=== PATIENT | male | born 1940 | race Caucasian/White ===

== ENCOUNTER → 2017-08-16 | Outpatient (CLI) | payer OTHER ==
[2017-08-16 11:29] LABS: ALT/SGPT 37 U/L (12-78); AST/SGOT 20 U/L (15-37); BLOOD UREA NITROGEN 22 mg/dl (7-18); CALCIUM 8.9 mg/dl (8.5-10.1); CARBON DIOXIDE 28 mmol/L (21-32); CREATININE 1.08 mg/dl (0.60-1.40); GLUCOSE 114 mg/dl (70-99); POTASSIUM 3.6 mmol/L (3.5-5.1); SODIUM 139 mmol/L (136-145)
[2017-08-16 11:32] LABS: CHOLESTEROL 182 mg/dl (0-200); LDL CHOLESTEROL CALCULATED 104 mg/dl
[2017-08-16 11:33] LABS: HEMOGLOBIN A1C 5.4 % (4.5-5.6)
== END | disposition home or self-care (01) ==
LOC: C.LABBC 07:49
PROVIDERS: ATTEND Internal Medicine
DX: E78.5 Hyperlipidemia, unspecified (principal); R73.01 Impaired fasting glucose

== ENCOUNTER 2020-12-30 16:27 | Inpatient (IN) ==
[2020-12-30] MEDS ORDERED: ONDANSETRON INJ 2 MG/ML 2 ML VIAL IV STA (16:54)
[2020-12-30] MEDS ORDERED: SODIUM CHLORIDE 0.9% 1000ML 1,000 ML IV ONE (16:54)
[2020-12-30] MEDS ORDERED: FAMOTIDINE 20MG IV PUSH 20 MG/5 ML SYR IV STA (16:54)
[2020-12-30] MEDS ORDERED: OPTIRAY 320 125ml IV ONE (16:58)
--- NOTE | 2020-12-30 17:15 | Emergency Department Note ---
Impression & Plan Received intravenous tissue plasminogen activator (tPA) in emergency department, Stroke-like symptom, Acute memory impairment ED Provider Note NAME: RAFAEL CARPIO AGE: 80 SEX: M ARRIVES VIA: Walk-In INFORMANT: Patient, Patient's friend/colleague ED PROVIDER(S): Dion Doss MD CHIEF COMPLAINT: Acute memory impairment. 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 Patient also reports that he is unsure where he would even go if he were to attempt to drive home. He had trouble telling the year and thought it was 2019. He knew the season is "sometime in the summer" but did not know the month. 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 I did review the patient's presentation with his son over the phone and left a message on the voicemail of his daughter per the patient's permission. She denies any recent stressors, life changes. Denies any recent illness including fevers, chills, cough, congestion. He denies having any similar episodes such as this in the past. BSG on arrival was within normal limits. He denies any blood thinners or daily aspirin and none documented in his medical record. On arrival the patient is no acute distress, afebrile with blood pressure 150s/80s and otherwise with vital signs. He appears clinically dry. He has no focal motor deficits. He does have notable amnesia/impaired memory regarding events today and basic information including where he lives, what the year is what month it is and that he gave his presentation today and even what it may have been about. Case was discussed with Dr. Urbina, [facility] telestroke neurology, who evaluate the patient upon return from CT. TPA was prepared in preparation for possible administration. WBC, H/H and platelets within normal limits. Chemistry without metabolic acidosis. Electrolytes without significant abnormality. Total bilirubin 1.7 with direct bili 1.3, nonspecific. LFTs unremarkable. Troponin negative/undetectable. TSH within normal limits. COVID-[address] of the head negative for ischemia or ICH. CT a of the head and neck d emonstrates small vessel disease as well as focal occlusion of the right vertebral artery which is nonspecific and may be acute versus possible reflecting left vertebral dominance. Dr. Urbina was evaluating the patient and it was determined that given the patient's symptoms,while could be consistent with TGA which would be benign, certainly could be explained by focal ischemia in the HEAD CONCIERGE territory and so decision was made to proceed with TPA. The patient was in agreement with this plan. Patient tolerating TPA bolus and infusion well. Appreciate telestroke neurology recommendations per Dr. Urbina for admission and MRI at 24 hours as well as spot EEG tomorrow and standard post-tpa management. Patient is in agreement with this plan. RN updated daughter. Case was [facility], who will evaluate the patient for admission. Of note, I was informed by RN of minor bleeding around left AC IV site. There was minor fullness proximal to IV site without tenderness. tPA gtt has been stopped upon recognition of site but 66cc gtt was complete. Site appeared improved on re-evaluation. Triage Nursing notes reviewed and agree them. Prior medical records reviewed Vital Signs: reviewed and remarkable for hypertension. Differential diagnosis: Infection, dehydration, metabolic abnormality, hypo/hyperglycemia, electrolyte disturbance, anemia, hypoxia, cardiac sources, intracerebral event, toxicologic, neurologic, as well as other pathologies. ER treatment provided: See below. Diagnostics interpreted by me: ECG: Normal sinus rhythm, 68 bpm, no ectopy, no overt ST elevation depression, QTC 442, QRS 88. Cardiac Monitoring: An order for continuous cardiac monitoring was placed and demonstrated Normal sinus rhythm, 68 bpm, no ectopy. Laboratory studies: See below Imaging studies: See below Consultation(s): Dr. Urbina, [facility] telestroke neurology. Dr. Valadez, [facility], who will evaluate the patient for admission. 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 Patient also reports that he is unsure where he would even go if he were to attempt to drive home. He had trouble telling the year and thought it was 2019. He knew the season is "sometime in the summer" but did not know the month. 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 I did review the patient's presentation with his son over the phone and left a message on the voicemail of his daughter per the patient's permission. She denies any recent stressors, life changes. Denies any recent illness including fevers, chills, cough, congestion. He denies having any similar episodes such as this in the past. BSG on arrival was within normal limits. He denies any blood thinners or daily aspirin and none d ocumented in his medical record. ROS: See above HPI for pertinent positives & negatives. A total of 10 systems reviewed and were otherwise negative. PAST MEDICAL HISTORY:See Below PAST SURGICAL HISTORY:See Below FAMILY HISTORY:See Below SOCIAL HISTORY:See Below HOME MEDICATIONS:See Below ALLERGIES:See Below VITALS:See Below PHYSICAL EXAMINATION: GENERAL: Awake, alert, well-appearing, in no distress HENT: Normocephalic, atraumatic. Oropharynx with dry mucous membranes and otherwise unremarkable. EYES: Normal conjunctiva. Sclera non-icteric. EOMI. No nystamgus. PEARRL. Visual contreras grossly intact. NECK: Supple. No nuchal rigidity. FROM. No JVD. RESPIRATORY: Clear to auscultation. CARDIAC: Regular rate, normal rhythm. Extremities warm and well perfused. Pulses equal. ABDOMEN: Soft, non-distended. No tenderness to palpation. No rebound or guarding. No masses. RECTAL: Deferred. MUSCULOSKELETAL: Chest examination reveals no tenderness. The back is sym metrical on inspection without obvious abnormality. There is no CVA tenderness to palpation. No joint edema. LOWER EXTREMITIES: Calves are equal size bilaterally and non-tender. No edema. No discoloration. NEURO: Patient has overt memory impairment/amnesia per HPI. Otherwise, cranial nerves II-XII grossly intact there is no overt aphasia or dysarthria. 5/5 strength and SILT x 4 extremities. Cerebellar function intact including [id number], alternating palms, [id number]. SKIN: No rash or jaundice noted. ED COURSE: Critical Care: I have personally spent greater than 75 minutes of critical care time in the direct management of this patient. This includes bedside care, interpretation of diagnostic studies, and testing, discussion with consultants, patient, and family members, and other required patient management activities. This 75 minutes is in excess of all separately billable procedures. 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; h/o chemo HLD (hyperlipidemia) Neuropathy Surgical History History of colonoscopy History of ear surgery Mohs micrgraphic History of excision of pilonidal cyst History of left cataract extraction History of shoulder surgery Mohs Micrographic History of tonsillectomy and adenoidectomy Hx of inguinal hernia surgery Family History Mother Cerebral atherosclerosis Family history of uterine cancer Glaucoma Stroke Father Diabetes Cerebral atherosclerosis Other No family history of adverse response to anesthesia Denies family history of Ovarian cancer Prostate cancer Myocardial infarction Breast cancer Lung cancer Colorectal cancer Social History Smoking Status: Never smoker Second Hand Exposure: No; Hx Alcohol Use: No Hx Substance Use: No Preferred Language: Qatari Communication Ability: Effective Visual Impairment: No Limitations Hearing Ability: Normal 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: No Beliefs That Will Affect Care: None marital status: Current Living Situation: Alone current occupational status: employed How many Children do You have: 2 Other Information That Helps Us Care for You: No Feels Safe at Home: Yes Safety Concerns: Feels Safe At This Time Childhood Exposure to Second-Hand Smoke: Yes (Father) caffeine: No Dental Care, Regularly: Yes Physical Activity Frequency: Daily Physical Activity Frequency Comment: walk mile a day Seatbelt Use: always Sunscreen Use: Yes (sometimes) Assistive Devices: Glasses Allergies Allergies Allergy/AdvReac Type Severity Reaction Status Date / Time No Known Allergies Allergy Verified 12/30/20 16:51 Home Meds Home Medications Medication Instructions Recorded Confirmed omega 2-lwr-aaq-fish oil 1,000 mg 1 cap PO TID 12/06/18 12/30/20 (120 mg-180 mg) capsule (Fish Oil) omeprazole 20 mg capsule,delayed 20 mg PO QPM 10/28/20 12/30/20 release Previous Rx's Medication Instructions Recorded simvastatin 20 mg tablet 20 mg PO QPM #90 tab 04/07/20 finasteride 5 mg tablet 5 mg PO DAILY #90 tab 12/16/20 Results & Data (ED) Vital Signs Vital Signs - 24 hr 12/30/20 16:30 12/30/20 16:52 12/30/20 17:00 Temperature 36.4 C L Temperature Source Temporal Artery Scan Pulse Rate 62 66 71 Pulse Rate [Right Finger] Pulse Rate from SpO2 Sensor 70 71 Pulse Rhythm Regular Pulse Rhythm [Right Finger] Pulse Strength Normal Pulse Strength [Right Finger] Respiratory Rate 20 22 15 Respiratory Effort / Characteristics Non-Labored Spontaneous Respiratory Depth Normal Respiratory Pattern Regular Blood Pressure 157/83 H 159/83 H 159/94 H Blood Pressure [Right Arm] Blood Pressure Mean 107 108 115 Blood Pressure Mean [Right Arm] Blood Pressure Position Sitting Blood Pressure Position [Right Arm] Pulse Oximetry 98 96 97 Oxygen Delivery Method Room Air Sepsis Recent Fever Within 48 Hours No Sepsis New/Unexplained Change in Mental Status No Sepsis Action Taken by Nursing No Action Required 12/30/20 17:18 12/30/20 17:30 12/30/20 17:53 Temperature Temperature Source Pulse Rate 70 71 Pulse Rate [Right Finger] 67 75 Pulse Rate from SpO2 Sensor 68 72 Pulse Rhythm Pulse Rhythm [Right Finger] Regular Pulse Strength Pulse Strength [Right Finger] Normal Respiratory Rate 17 18 18 Respiratory Effort / Characteristics Non-Labored Respiratory Depth Normal Respiratory Pattern Regular Blood Pressure 168/86 H 154/88 H Blood Pressure [Right Arm] 154/88 H 154/109 H Blood Pressure Mean 113 110 Blood Pressure Mean [Right Arm] 110 124 Blood Pressure Position Blood Pressure Position [Right Arm] Sitting Pulse Oximetry 99 97 98 Oxygen Delivery Method Room Air Room Air Sepsis Recent Fever Within 48 Hours Sepsis New/Unexplained Change in Mental Status Sepsis Action Taken by Nursing 12/30/20 18:10 12/30/20 18:25 12/30/20 18:40 Temperature 37.0 C 36.9 C 36.5 C Temperature Source Oral Oral Oral Pulse Rate Pulse Rate [Right Finger] 75 69 73 Pulse Rate from SpO2 Sensor Pulse Rhythm Pulse Rhythm [Right Finger] Regular Regular Regular Pulse Strength Pulse Strength [Right Finger] Normal Normal Normal Respiratory Rate 16 17 18 Respiratory Effort / Characteristics Non-Labored Non-Labored Non-Labored Respiratory Depth Normal Normal Normal Respiratory Pattern Regular Regular Regular Blood Pressure Blood Pressure [Right Arm] 164/83 H 156/81 H 175/99 H Blood Pressure Mean Blood Pressure Mean [Right Arm] 110 106 124 Blood Pressure Position Blood Pressure Position [Right Arm] Sitting Sitting Sitting Pulse Oximetry 98 98 98 Oxygen Delivery Method Room Air Room Air Room Air Sepsis Recent Fever Within 48 Hours Sepsis New/Unexplained Change in Mental Status Sepsis Action Taken by Nursing 12/30/20 18:58 Temperature 36.6 C Temperature Source Oral Pulse Rate Pulse Rate [Right Finger] 65 Pulse Rate from SpO2 Sensor Pulse Rhythm Pulse Rhythm [Right Finger] Regular Pulse Strength Pulse Strength [Right Finger] Normal Respiratory Rate 17 Respiratory Effort / Characteristics Non-Labored Respiratory Depth Normal Respiratory Pattern Regular Blood Pressure Blood Pressure [Right Arm] 155/88 H Blood Pressure Mean Blood Pressure Mean [Right Arm] 110 Blood Pressure Position Blood Pressure Position [Right Arm] Sitting Pulse Oximetry 96 Oxygen Delivery Method Room Air Sepsis Recent Fever Within 48 Hours Sepsis New/Unexplained Change in Mental Status Sepsis Action Taken by Nursing Laboratory Data Attestation: I reviewed the patient's lab results. Result diagrams: 12/30/20 16:55 12/30/20 16:55 Lab Results 12/30/20 12/30/20 12/30/20 Range/Units 16:55 16:55 16:55 WBC 4.85 (4.8-10.8) K/uL RBC 5.37 (4.7-6.1) M/uL Hgb 17.2 (14.0-18.0) g/dL Hct 49.2 (42-52) % MCV 91.6 (80-100) fL MCH 32.0 (25-34) pg MCHC 35.0 (32-36) g/dL RDW Std Deviation 43.6 (36.4-46.3) fL RDW Coeff of Joe 13.1 (11.5-14.5) % Plt Count 152 (130-400) K/uL MPV 11.2 H (7.4-10.4) fL Immature Gran % (Auto) 0.2 % Neut % (Auto) 63.8 % Lymph % (Auto) 24.9 % [place] % (Auto) 7.6 % Eos % (Auto) 2.7 % Baso % (Auto) 0.8 % Neut # (Auto) 3.09 (1.4-6.5) K/uL Lymph # (Auto) 1.21 (1.2-3.4) K/uL Lincoln # (Auto) 0.37 (0.11-0.59) K/uL Eos # (Auto) 0.13 (0-0.5) K/uL Baso # (Auto) 0.04 (0-0.2) K/uL Immature Gran # (Auto) 0.01 (0.00-0.02) K/uL PT 10.5 (9.0-12.0) Seconds INR 1.0 (0.9-1.1) APTT 25.4 (21.0-31.0) Seconds PTT Ratio 1.0 Sodium 140 (136-145) mmol/L Potassium 3.9 (3.5-5.1) mmol/L Chloride 110 H (98-107) mmol/L Carbon Dioxide 26 (21-32) mmol/L Anion Gap 4.0 (3-11) BUN 16 (7-18) mg/dl Creatinine 0.99 (0.6-1.4) mg/dl Est Cr Clr Drug Dosing 64.4 ml/min Est GFR ( Amer) 83.6 ml/min Est GFR (Non-Af Amer) 72.1 ml/min BUN/Creatinine Ratio 15.8 (10-20) Glucose 117 H (70-99) mg/dl POC Glucose (70-99) mg/dl Calcium 9.0 (8.5-10.1) mg/dl Phosphorus 3.1 (2.5-4.9) mg/dl Magnesium 2.3 (1.8-2.4) mg/dl Total Bilirubin 1.7 H (0.2-1) mg/dl Direct Bilirubin 0.3 H (0-0.2) mg/dl AST 19 (15-37) U/L ALT 31 (12-78) U/L Alkaline Phosphatase 66 (45-117) U/L Total Creatine Kinase 44 (39-308) U/L Troponin I < 0.015 (0-0.045) ng/ml Total Protein 7.3 (6.4-8.2) gm/dl Albumin 4.0 (3.4-5.0) gm/dl Globulin 3.3 (2.5-4.0) gm/dl Albumin/Globulin Ratio 1.2 (0.9-2) TSH 2.540 (0.300-4.500) uIu/ml Urine Color Urine Appearance (Clear) Urine pH (4.5-7.5) Ur Specific [place] (1.000-1.030) Urine Protein (Negative) Urine Glucose (UA) (Negative) Urine Ketones (Negative) Urine Blood (Negative) Urine Nitrite (Negative) Urine Bilirubin (Negative) Urine Urobilinogen (Negative) Ur Leukocyte Esterase (Negative) COVID-19 Eval Order SARS-CoV-2 (PCR) (Negative) Blood Type Antibody Screen 12/30/20 12/30/20 12/30/20 Range/Units 16:56 17:04 17:23 WBC (4.8-10.8) K/uL RBC (4.7-6.1) M/uL Hgb (14.0-18.0) g/dL Hct (42-52) % MCV (80-100) fL MCH (25-34) pg MCHC (32-36) g/dL RDW Std Deviation (36.4-46.3) fL RDW Coeff of Joe (11.5-14.5) % Plt Count (130-400) K/uL MPV (7.4-10.4) fL Immature Gran % (Auto) % Neut % (Auto) % Lymph % (Auto) % [place] % (Auto) % Eos % (Auto) % Baso % (Auto) % Neut # (Auto) (1.4-6.5) K/uL Lymph # (Auto) (1.2-3.4) K/uL [place] # (Auto) (0.11-0.59) K/uL Eos # (Auto) (0-0.5) K/uL Baso # (Auto) (0-0.2) K/uL Immature Gran # (Auto) (0.00-0.02) K/uL PT (9.0-12.0) Seconds INR (0.9-1.1) APTT (21.0-31.0) Seconds PTT Ratio Sodium (136-145) mmol/L Potassium (3.5-5.1) mmol/L Chloride (98-107) mmol/L Carbon Dioxide (21-32) mmol/L Anion Gap (3-11) BUN (7-18) mg/dl Creatinine (0.6-1.4) mg/dl Est Cr Clr Drug Dosing ml/min Est GFR ( Amer) ml/min Est GFR (Non-Af Amer) ml/min BUN/Creatinine Ratio (10-20) Glucose (70-99) mg/dl POC Glucose 114 H (70-99) mg/dl Calcium (8.5-10.1) mg/dl Phosphorus (2.5-4.9) mg/dl Magnesium (1.8-2.4) mg/dl Total Bilirubin (0.2-1) mg/dl Direct Bilirubin (0-0.2) mg/dl AST (15-37) U/L ALT (12-78) U/L Alkaline Phosphatase (45-117) U/L Total Creatine Kinase (39-308) U/L Troponin I (0-0.045) ng/ml Total Protein (6.4-8.2) gm/dl Albumin (3.4-5.0) gm/dl Globulin (2.5-4.0) gm/dl Albumin/Globulin Ratio (0.9-2) TSH (0.300-4.500) uIu/ml Urine Color Urine Appearance (Clear) Urine pH (4.5-7.5) Ur Specific [place] (1.000-1.030) Urine Protein (Negative) Urine Glucose (UA) (Negative) Urine Ketones (Negative) Urine Blood (Negative) Urine Nitrite (Negative) Urine Bilirubin (Negative) Urine Urobilinogen (Negative) Ur Leukocyte Esterase (Negative) COVID-19 Eval Order Covid19 at [facility] SARS-CoV-2 (PCR) (Negative) Blood Type O Negative Antibody Screen NEGATIVE 12/30/20 12/30/20 Range/Units 17:23 17:42 WBC (4.8-10.8) K/uL RBC (4.7-6.1) M/uL Hgb (14.0-18.0) g/dL Hct (42-52) % MCV (80-100) fL MCH (25-34) pg MCHC (32-36) g/dL RDW Std Deviation (36.4-46.3) fL RDW Coeff of Joe (11.5-14.5) % Plt Count (130-400) K/uL MPV (7.4-10.4) fL Immature Gran % (Auto) % Neut % (Auto) % Lymph % (Auto) % [place] % (Auto) % Eos % (Auto) % Baso % (Auto) % Neut # (Auto) (1.4-6.5) K/uL Lymph # (Auto) (1.2-3.4) K/uL [place] # (Auto) (0.11-0.59) K/uL Eos # (Auto) (0-0.5) K/uL Baso # (Auto) (0-0.2) K/uL Immature Gran # (Auto) (0.00-0.02) K/uL PT (9.0-12.0) Seconds INR (0.9-1.1) APTT (21.0-31.0) Seconds PTT Ratio Sodium (136-145) mmol/L Potassium (3.5-5.1) mmol/L Chloride (98-107) mmol/L Carbon Dioxide (21-32) mmol/L Anion Gap (3-11) BUN (7-18) mg/dl Creatinine (0.6-1.4) mg/dl Est Cr Clr Drug Dosing ml/min Est GFR ( Amer) ml/min Est GFR (Non-Af Amer) ml/min BUN/Creatinine Ratio (10-20) Glucose (70-99) mg/dl POC Glucose (70-99) mg/dl Calcium (8.5-10.1) mg/dl Phosphorus (2.5-4.9) mg/dl Magnesium (1.8-2.4) mg/dl Total Bilirubin (0.2-1) mg/dl Direct Bilirubin (0-0.2) mg/dl AST (15-37) U/L ALT (12-78) U/L Alkaline Phosphatase (45-117) U/L Total Creatine Kinase (39-308) U/L Troponin I (0-0.045) ng/ml Total Protein (6.4-8.2) gm/dl Albumin (3.4-5.0) gm/dl Globulin (2.5-4.0) gm/dl Albumin/Globulin Ratio (0.9-2) TSH (0.300-4.500) uIu/ml Urine Color Yellow Urine Appearance Clear (Clear) Urine pH 6.0 (4.5-7.5) Ur Specific [place] 1.029 (1.000-1.030) Urine Protein Negative (Negative) Urine Glucose (UA) Negative (Negative) Urine Ketones 1+ H (Negative) Urine Blood Negative (Negative) Urine Nitrite Negative (Negative) Urine Bilirubin Negative (Negative) Urine Urobilinogen Negative (Negative) Ur Leukocyte Esterase Negative (Negative) COVID-19 Eval Order SARS-CoV-2 (PCR) NEGATIVE (Negative) Blood Type Antibody Screen Administered Medications Fish Oil (Celoron-3 (Purified Fish Oil) 1 Gm Cap) 1 gm PO TID RADHA Stop: 01/29/21 21:07 Last Admin: 12/30/20 22:28 Dose: 1 gm Documented by: [id number] Pantoprazole Sodium (Pantoprazole 40 Mg Tab) 40 mg PO QPM RADHA Stop: 01/29/21 21:07 Last Admin: 12/30/20 22:28 Dose: 40 mg Documented by: [id number] Simvastatin (Simvastatin 20 Mg Tab) 20 mg PO QPM RADHA Stop: 01/29/21 21:07 Last Admin: 12/30/20 22:28 Dose: 20 mg Documented by: [id number] Discontinued Medications Alteplase, Recombinant (Tpa For Stroke) 1 ea IV NOW STA; Protocol Stop: 12/30/20 17:53 Last Admin: 12/30/20 21:55 Dose: Not Given Documented by: [id number] Famotidine (Pepcid 20mg Iv Push) 20 mg in 5 mls @ 2.5 mls/min IV NOW STA Stop: 12/30/20 16:55 Last Admin: 12/30/20 17:23 Dose: 2.5 mls/min Documented by: [id number] Sodium Chloride (Nss 1000ml) 1,000 mls @ 999 mls/hr IV .Q1H1M ONE Stop: 12/30/20 17:54 Last Infusion: 12/30/20 20:45 Dose: 0 mls/hr Documented by: [id number] Admin: 12/30/20 17:23 Dose: 999 mls/hr Documented by: [id number] Alteplase, Recombinant 7.4 mg/ (Syringe) 7.4 mls @ 7.4 mls/min IV ONCE ONE Stop: 12/30/20 18:03 Last Admin: 12/30/20 17:53 Dose: 7.4 mls/min Documented by: [id number] Cosigned by: [id number] Alteplase, Recombinant 66 mg/ (EMPTY BAG) 66 mls @ 66 mls/hr IV ONCE ONE Stop: 12/30/20 18:04 Last Infusion: 12/30/20 19:02 Dose: 66 mls/hr Documented by: [id number] Cosigned by: [id number] Admin: 12/30/20 17:55 Dose: 66 mls/hr Documented by: [id number] Cosigned by: [id number] Ioversol (Optiray 320 125ml) 118 ml IV ONCE ONE Stop: 12/30/20 16:59 Last Admin: 12/30/20 16:58 Dose: 118 ml Documented by: [id number] Ondansetron HCl (Ondansetron Inj 2 Mg/Ml 2 Ml Vial) 4 mg IV NOW STA Stop: 12/30/20 16:55 Last Admin: 12/30/20 17:23 Dose: 4 mg Documented by: [id number] Imaging Data Radiologist's Impression: Head CT 12/30/20 16:51 CT head/brain wo con CLINICAL HISTORY: Stroke Like Symptoms COMPARISON STUDY: No previous studies for comparison. TECHNIQUE: Axial CT of the brain is performed from the vertex to the skull base. IV contrast was not administered for this examination. A dose lowering technique was utilized adhering to the principles of ALARA. CT DOSE: 1209.66 mGy.cm FINDINGS: No intra or extra-axial mass lesions are visualized. There is no CT evidence of acute cortical infarction. There is no evidence of midline shift. There is no acute hemorrhage. No acute depressed calvarial fractures are visualized. There are patchy white matter hypodensities likely on a small vessel basis. There is no evidence of pathologic ventricular dilatation. Concentric mucosal thickening of bilateral maxillary sinuses likely representing inflammatory process. Also mucous polyp is seen on nondependent portion of the left sphenoid sinus. IMPRESSION: No acute intracranial hemorrhage, no midline shift or space occupying lesions. Chronic small vessel ischemia. Sinusitis. ACT 112: Negative or not required by law. The above report was generated using voice recognition software. It may contain grammatical, syntax or spelling errors. Electronically signed by: Marcia Ya DO 12/30/2020 5:22 PM Head CTA 12/30/20 16:51 CT angio head w con CLINICAL HISTORY: Stroke Like Symptoms TECHNIQUE: CT angiography of the head was performed in a dynamic helical fashion during intravenous administration of 180 cc of Optiray. MIP imaging was performed. A dose lowering technique was utilized adhering to the principles of ALARA. CT DOSE: COMPARISON STUDY: No previous studies for comparison. FINDINGS: Minimal atherosclerotic involvement of the supraclinoid aspect of the right and left internal carotid arteries without hemodynamically significant stenosis. Bilateral middle and anterior cerebral arteries are patent throughout its course without focal occlusion or significant stenosis. Bilateral anterior communicating arteries are patent. Basilar artery is patent. Right and left posterior cerebral arteries are patent. IMPRESSION: Patent bilateral YUNIER, MCA and HEAD CONCIERGE. No focal occlusion, dissection or aneurysmal dilatation seen. ACT 112: Negative or not required by law. The above report was generated using voice recognition software. It may contain grammatical, syntax or spelling errors. Electronically signed by: Marcia Ya DO 12/30/2020 5:35 PM Neck CTA 12/30/20 16:51 CT angio neck with con CLINICAL HISTORY: Stroke Like Symptoms COMPARISON STUDY: No previous studies for comparison. TECHNIQUE: CT angiography was performed from the aortic arch to the skull base. MIP imaging was performed. The patient was scanned in a dynamic helical fashion during intravenous administration of 118 cc of Optiray. A dose lowering technique was utilized adhering to the principles of ALARA. CT DOSE: Technique: CT angiogram of the carotid and vertebral arteries was obtained using intravenous contrast and 3-D reconstruction. NASCET criteria was utilized. Findings: Mild atherosclerotic involvement of the left carotid bulb. The right carotid revealed no evidence of aneurysm and no evidence of dissection. There is no evidence of hemodynamic significant stenosis. The left carotid revealed no evidence of hemodynamic significant stenosis. There is no evidence of aneurysm. There is no evidence of dissection. Left predominant vertebral circulation is seen. Right vertebral artery is diffusely narrowed. Distal V4 segment of the right vertebral artery is significantly narrowed with almost nonvisualization of the flow within V4 segment, possibly due to focal occlusion. Right vertebral artery is patent throughout its course. No evidence of dissection or aneurysmal dilatation. IMPRESSION: No evidence of hemodynamically significant stenosis within bilateral carotid or left vertebral artery. Possible focal occlusion at the distal aspect of the V4 segment of the right vertebral artery. Diffuse narrowing of right vertebral artery which could be due to left predominant vertebral circulation. Report will be sent to emergency Department. No evidence of dissection. ACT 112: Negative or not required by law. The above report was generated using voice recognition software. It may contain grammatical, syntax or spelling errors. Electronically signed by: Marcia Ya DO 12/30/2020 5:29 PM Discharge Plan Visit Data Chief Complaint: Confusion Stated Complaint: CONFUSED ED Provider: Dion Doss Discharge Problem: Received intravenous tissue plasminogen activator (tPA) in emergency department, Stroke-like symptom, Acute memory impairment Patient Disposition: Admitted As Inpatient Discharge Instructions Interventions: ED Discharge Assessment Last Done: 12/30/20 20:30
--- NOTE | 2020-12-30 17:24 | CT Scan Report ---
CT head/brain wo con CLINICAL HISTORY: Stroke Like Symptoms COMPARISON STUDY: No previous studies for comparison. TECHNIQUE: Axial CT of the brain is performed from the vertex to the skull base. IV contrast was not administered for this examination. A dose lowering technique was utilized adhering to the principles of ALARA. CT DOSE: 1209.66 mGy.cm FINDINGS: No intra or extra-axial mass lesions are visualized. There is no CT evidence of acute cortical infarc tion. There is no evidence of midline shift. There is no acute hemorrhage. No acute depressed calvar ial fractures are visualized. There are patchy white matter hypodensities likely on a small vessel basis. There is no evidence of pathologic ventricular dilatation. Concentric mucosal thickening of bilateral maxillary sinuses likely representing inflammatory process . Also mucous polyp is seen on nondependent portion of the left sphenoid sinus. IMPRESSION: No acute intracranial hemorrhage, no midline shift or space occupying lesions. Chronic small vessel ischemia. Sinusitis. ACT 112: Negative or not required by law. The above report was generated using voice recognition software. It may contain grammatical, syntax o r spelling errors. Electronically signed by: Marcia Ya DO 12/30/2020 5:22 PM
[2020-12-30 17:27] LABS: Partial Thromboplastin Time 25.4 Seconds (21.0-31.0); Prothrombin Time 10.5 Seconds (9.0-12.0)
[2020-12-30 17:30] LABS: Alanine Aminotransferase 31 U/L (12-78); Aspartate Aminotransferase 19 U/L (15-37); BUN Creatinine Ratio 15.8 (10-20); Bilirubin Direct 0.3 mg/dl (0-0.2); Blood Urea Nitrogen 16 mg/dl (7-18); Carbon Dioxide 26 mmol/L (21-32); Chloride 110 mmol/L (98-107); Creatinine Clr Calc Pharmacy 64.4 ml/min; Est GFR (African American) 83.6 ml/min; Est GFR (Non-African American) 72.1 ml/min; Glucose 117 mg/dl (70-99); Magnesium 2.3 mg/dl (1.8-2.4); Potassium 3.9 mmol/L (3.5-5.1); Sodium 140 mmol/L (136-145)
--- NOTE | 2020-12-30 17:31 | CT Scan Report ---
CT angio neck with con CLINICAL HISTORY: Stroke Like Symptoms COMPARISON STUDY: No previous studies for comparison. TECHNIQUE: CT angiography was performed from the aortic arch to the skull base. MIP imaging was perfo rmed. The patient was scanned in a dynamic helical fashion during intravenous administration of 118 c c of Optiray. A dose lowering technique was utilized adhering to the principles of ALARA. CT DOSE: Technique: CT angiogram of the carotid and vertebral arteries was obtained using intravenous contrast and 3-D reconstruction. NASCET criteria was utilized. Findings: Mild atherosclerotic involvement of the left carotid bulb. The right carotid revealed no evidence of aneurysm and no evidence of dissection. There is no evidenc e of hemodynamic significant stenosis. The left carotid revealed no evidence of hemodynamic significant stenosis. There is no evidence of an eurysm. There is no evidence of dissection. Left predominant vertebral circulation is seen. Right vertebral artery is diffusely narrowed. Distal V4 segment of the right vertebral artery is significantly narrowed with almost nonvisualization of th e flow within V4 segment, possibly due to focal occlusion. Right vertebral artery is patent throughou t its course. No evidence of dissection or aneurysmal dilatation. IMPRESSION: No evidence of hemodynamically significant stenosis within bilateral carotid or left vertebral artery . Possible focal occlusion at the distal aspect of the V4 segment of the right vertebral artery. Diffus e narrowing of right vertebral artery which could be due to left predominant vertebral circulation. R eport will be sent to emergency Department. No evidence of dissection. ACT 112: Negative or not required by law. The above report was generated using voice recognition software. It may contain grammatical, syntax o r spelling errors. Electronically signed by: Marcia Ya DO 12/30/2020 5:29 PM
[2020-12-30 17:32] LABS: Basophils # (auto) 0.04 K/uL (0-0.2); Basophils % (auto) 0.8 %; Eosinophils # (auto) 0.13 K/uL (0-0.5); Eosinophils % (auto) 2.7 %; Hematocrit (blood only) 49.2 % (42-52); Hemoglobin 17.2 g/dL (14.0-18.0); Immature Granulocytes # (auto) 0.01 K/uL (0.00-0.02); Immature Granulocytes % (auto) 0.2 %; Lymphocytes # (auto) 1.21 K/uL (1.2-3.4); Lymphocytes % (auto) 24.9 %; Mean Corpuscular Volume 91.6 fL (80-100); Mean Platelet Volume 11.2 fL (7.4-10.4); Monocytes # (auto) 0.37 K/uL (0.11-0.59); Monocytes % (auto) 7.6 %; Neutrophils # (auto) 3.09 K/uL (1.4-6.5); Neutrophils % (auto) 63.8 %; Platelet Count 152 K/uL (130-400); RDW Coefficient of Variation 13.1 % (11.5-14.5); RDW Standard Deviation 43.6 fL (36.4-46.3); Red Blood Count 5.37 M/uL (4.7-6.1); White Blood Count 4.85 K/uL (4.8-10.8)
--- NOTE | 2020-12-30 17:36 | CT Scan Report ---
CT angio head w con CLINICAL HISTORY: Stroke Like Symptoms TECHNIQUE: CT angiography of the head was performed in a dynamic helical fashion during intravenous a dministration of 180 cc of Optiray. MIP imaging was performed. A dose lowering technique was utilized adhering to the principles of ALARA. CT DOSE: COMPARISON STUDY: No previous studies for comparison. FINDINGS: Minimal atherosclerotic involvement of the supraclinoid aspect of the right and left internal carotid arteries without hemodynamically significant stenosis. Bilateral middle and anterior cerebral arteries are patent throughout its course without focal occlus ion or significant stenosis. Bilateral anterior communicating arteries are patent. Basilar artery is patent. Right and left posterior cerebral arteries are patent. IMPRESSION: Patent bilateral YUNIER, MCA and SAW FEEDER. No focal occlusion, dissection or aneurysmal dilatation seen. ACT 112: Negative or not required by law. The above report was generated using voice recognition software. It may contain grammatical, syntax o r spelling errors. Electronically signed by: Marcia Ya DO 12/30/2020 5:35 PM
[2020-12-30 17:39] LABS: Albumin Globulin Ratio 1.2 (0.9-2); Alkaline Phosphatase 66 U/L (45-117); Bilirubin,Total 1.7 mg/dl (0.2-1); Creatine Kinase 44 U/L (39-308); Globulin 3.3 gm/dl (2.5-4.0); Phosphorus 3.1 mg/dl (2.5-4.9); Total Protein 7.3 gm/dl (6.4-8.2); Troponin I < 0.015 ng/ml (0-0.045)
[2020-12-30] MEDS ORDERED: TPA for Stroke IV STA (17:52)
[2020-12-30] MEDS ORDERED: No Aspirin within 24 hrs of TPA for Stroke PO SCH (18:00)
[2020-12-30] MEDS ORDERED: Alteplase Bolus 7.4 MG in SYRINGE 0 ML IV ONE (18:02)
[2020-12-30] MEDS ORDERED: ALTEPLASE, RECOMBINANT 66 MG in EMPTY BAG 0 ML IV ONE (18:03)
[2020-12-30] MEDS ORDERED: PRIMARY PLUMSET, PE LINED TUBING, 113 IN, NON-DEHP (2260-0500) IV ONE (18:03)
[2020-12-30 18:23] LABS: Appearance Urine Clear (Clear); Bilirubin Urine Negative (Negative); Blood Urine Negative (Negative); Color Urine Yellow; Glucose Urine UA Negative (Negative); Ketones Urine 1+ (Negative); Leukocyte Esterase Urine Negative (Negative); Nitrite Urine Negative (Negative); Protein Urine Negative (Negative); Specific Gravity Urine 1.029 (1.000-1.030); Urobilinogen Urine Negative (Negative)
--- NOTE | 2020-12-30 19:06 | History & Physical Report ---
Date of Service December 30, 2020 Assessment & Plan (1) Transient global amnesia: Plan: 80 yo male comes into the hospital with above problem. Possible stroke. S/P tPA. obtained CTA head and neck and CT head. will consult neurology If no improvement and stroke unlikely, may consider infectious causes. However currently not presenting signs of sepsis. Neurosyphillis may also be part of the differential. 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 (4) Benign prostate hyperplasia: Plan: resume finasteride and monitor History of Present Illness Chief Complaint: Amnesia Primary Care Provider: Chapo Case MD 80-year-old male with PMH of HLD, BPH who presented as a stroke alert this afternoon after his colleagues noticed that he was not himself. Patient had been preparing for a presentation today for days. 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 e underwent a CTA of the head and neck which did [place] straight small vessel disease as well as a focal occlusion of the right vertebral artery which was nonspecific and could be acute versus possibly reflecting left vertebral dominance. Patient wehnt to the ER and was given tPa for his amnesia after tele neuro consult done and thought that this may be related to PERIANESTHESIA RN territory ischemia. Patient continues to be confused and he does not recall exactly when this began. He denies any headache, dizziness, syncope, changes in vision, facial droop, numbness or tingling, or loss of sensation. He denies any recent illness, fevers, sore throat, chest pain, shortness of breath, nausea or vomiting, or abdominal pain. Will monitor in ICU for 24 hours following TPA administration protocol. Allergies Allergy/AdvReac Type Severity Reaction Status Date / Time No Known Allergies Allergy Verified 12/30/20 16:51 Home Medications Medication Instructions Recorded Confirmed Type omega 1-uwc-jlz-fish oil 1,000 mg 1 cap PO TID 12/06/18 12/30/20 History (120 mg-180 mg) capsule (Fish Oil) simvastatin 20 mg tablet 20 mg PO QPM #90 tab 04/07/20 12/30/20 Rx omeprazole 20 mg capsule,delayed 20 mg PO QPM 10/28/20 12/30/20 History release finasteride 5 mg tablet 5 mg PO DAILY #90 tab 12/16/20 12/30/20 Rx Past Med/Surg History Medical History BPH (benign prostatic hyperplasia) GERD (gastroesophageal reflux disease) History of basal cell carcinoma 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; h/o chemo HLD (hyperlipidemia) Neuropathy Surgical History History of colonoscopy History of ear surgery Mohs micrgraphic History of excision of pilonidal cyst History of left cataract extraction History of shoulder surgery Mohs Micrographic History of tonsillectomy and adenoidectomy Hx of inguinal hernia surgery Family History Mother Cerebral atherosclerosis Family history of uterine cancer Glaucoma Stroke Father Diabetes Cerebral atherosclerosis Other No family history of adverse response to anesthesia Denies family history of Ovarian cancer Prostate cancer Myocardial infarction Breast cancer Lung cancer Colorectal cancer Social History Smoking Status: Never smoker Second Hand Exposure: No; Hx Alcohol Use: No Hx Substance Use: No Preferred Language: Bahamian Communication Ability: Effective Visual Impairment: No Limitations Hearing Ability: Normal Employment Services Director Required: No Beliefs That Will Affect Care: None marital status: Current Living Situation: Alone current occupational status: employed How many Children do You have: 2 Other Information That Helps Us Care for You: No Feels Safe at Home: Yes Safety Concerns: Feels Safe At This Time Childhood Exposure to Second-Hand Smoke: Yes (Father) caffeine: No Dental Care, Regularly: Yes Physical Activity Frequency: Daily Physical Activity Frequency Comment: walk mile a day Seatbelt Use: always Sunscreen Use: Yes (sometimes) Assistive Devices: Glasses Review of Systems Review of Systems: Unobtainable due to cognitive status Physical Exam Constitutional: WD/WN, vitals as above Eyes: PERRL, conjunctivae normal, anicteric sclerae ENMT: external ear and nose normal, oropharynx normal Neck: trachea midline, no thyromegaly Respiratory: normal respiratory effort, lungs clear to auscultation Cardiovascular: RRR, no murmur, no edema Gastrointestinal (Abdomen): normal bowel sounds, soft, nontender, no hepatosplenomegaly Musculoskeletal: no cyanosis or clubbing, extremities motor strength 5/5 Skin: no rashes, warm and dry Neurologic: PERRL, EOMI, accommodation nl, no face palsy, no dysarthria Psychiatric: Orientation: alert and oriented to person; + not oriented to time Results & Data Results & Data ([facility]) Vital Signs (Past 12 Hours) Vital Signs Temp Pulse Pulse Resp BP BP Pulse Ox 12/30/20 18:58 36.6 C 65 17 155/88 H 96 12/30/20 18:40 36.5 C 73 18 175/99 H 98 12/30/20 18:25 36.9 C 69 17 156/81 H 98 12/30/20 18:10 37.0 C 75 16 164/83 H 98 12/30/20 17:53 75 18 154/109 H 98 12/30/20 17:30 71 67 18 154/88 H 154/88 H 97 12/30/20 17:18 70 17 168/86 H 99 12/30/20 17:00 71 15 159/94 H 97 12/30/20 16:52 66 22 159/83 H 96 12/30/20 16:30 36.4 C L 62 20 157/83 H 98 PG Care Time/CCT Total # of Minutes Spent Total Time Spent with Patient: Total time spent is greater than 50% in coordination of care (as documented) at patient's floor/unit and/or counseling patient: Coding Level of Care Code 13256 Initial Inpt Care Lvl 3 Diagnoses Transient global amnesia G45.4 tPA adm status 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
[2020-12-30] MEDS ORDERED: PHARMACIST DISCHARGE MED REC CONSULT PRN (19:07)
--- NOTE | 2020-12-30 21:01 | Critical Care Consultation ---
Date of Consultation December 30, 2020 Assessment & Plan (1) Stroke: Acute stroke?Patient presented as a stroke alert following acute symptoms of confusion and trouble with short-term memory after his conference at 3 PM -CT head without contrastno acute intracranial findings -CTA head and neckpossible focal occlusion at distal aspect of V4 segment of the right vertebral artery which could be due to left predominant vertebral circulation? -CTA otherwise unremarkable -Follow-up MRI -We will obtain EEG in a.m. following [facility] neurology recommendations -Follow-up CT head at 24 hours post TPA administration -Post TPA protocol, admitted to ICU for frequent neuro exams and close mon itoring -Follow-up neurology recommendations with aspirin, Plavix -Follow-up A1c and lipid panel -Continuous monitor on telemetry (2) BPH w/o urinary obs/LUTS: No issue at this time. Continue finasteride Strict I's and O's (3) Peripheral neuropathy: No issue at this time. Patient states this is related to chemotherapy from 20 years ago, he denies use of medications (4) Hyperlipidemia: Continue statin. Follow-up lipid panel History of Present Illness History of Present Illness Patient is a 80-year-old male with past medical history of HLD, BPH who presented to the emergency department as a code stroke earlier this evening after he was found to be confused by his colleagues while at work. Patient just presented just a presentation at 3 PM when his friend noticed that he was confus ed and having trouble remembering. On arrival to the emergency department he underwent CT head without contrast which was negative for acute intracranial process. He underwent a CTA of the head and neck which did [place] straight small vessel disease as well as a focal occlusion of the right vertebral artery which was nonspecific and could be acute versus possibly reflecting left vertebral dominance. 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 Post TPA administration he was admitted to the ICU for further monitoring. On arrival to the ICU the patient is oriented to person and place but is somewhat confused about time and does clearly have trouble with his short-term memory. He is able to remember that he had a stroke but does not remember the conference that he had earlier today. He is otherwise neurologically intact without further deficits and his speech is clear and precise. He denies any headache, dizziness, syncope, changes in vision, facial droop, numbness or tingling, or loss of sensation. He denies any recent illness, fevers, sore throat, chest pain, shortness of breath, nausea or vomiting, or abdominal pain. Will monitor in ICU for 24 hours following TPA administration protocol. Allergies Allergy/AdvReac Type Severity Reaction Status Date / Time No Known Allergies Allergy Verified 12/30/20 16:51 Home Medications Medication Instructions Recorded Confirmed Type omega 6-exp-jsk-fish oil 1,000 mg 1 cap PO TID 12/06/18 12/30/20 History (120 mg-180 mg) capsule (Fish Oil) simvastatin 20 mg tablet 20 mg PO QPM #90 tab 04/07/20 12/30/20 Rx omeprazole 20 mg capsule,delayed 20 mg PO QPM 10/28/20 12/30/20 History release finasteride 5 mg tablet 5 mg PO DAILY #90 tab 12/16/20 12/30/20 Rx Patient History Medical History BPH (benign prostatic hyperplasia) GERD (gastroesophageal reflux disease) History of basal cell carcinoma 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; h/o chemo HLD (hyperlipidemia) Neuropathy Surgical History History of colonoscopy History of ear surgery Mohs micrgraphic History of excision of pilonidal cyst History of left cataract extraction History of shoulder surgery Mohs Micrographic History of tonsillectomy and adenoidectomy Hx of inguinal hernia surgery Family History Mother Cerebral atherosclerosis Family history of uterine cancer Glaucoma Stroke Father Diabetes Cerebral atherosclerosis Other No family history of adverse response to anesthesia Denies family history of Ovarian cancer Prostate cancer Myocardial infarction Breast cancer Lung cancer Colorectal cancer Social History Smoking Status: Never smoker Second Hand Exposure: No; Hx Alcohol Use: No Hx Substance Use: No Preferred Language: Micronesian Communication Ability: Effective Visual Impairment: No Limitations Hearing Ability: Normal Merchandise Flow Team Leader Required: No Beliefs That Will Affect Care: None marital status: Current Living Situation: Alone current occupational status: employed How many Children do You have: 2 Other Information That Helps Us Care for You: No Feels Safe at Home: Yes Safety Concerns: Feels Safe At This Time Childhood Exposure to Second-Hand Smoke: Yes (Father) caffeine: No Dental Care, Regularly: Yes Physical Activity Frequency: Daily Physical Activity Frequency Comment: walk mile a day Seatbelt Use: always Sunscreen Use: Yes (sometimes) Assistive Devices: Glasses Review of Systems Review of Systems: All systems reviewed & are unremarkable except as noted in HPI & below Physical Exam Constitutional: cooperative and comfortable Eyes: PERRL, conjunctivae normal, anicteric sclerae ENMT: external ear and nose normal, oropharynx normal Neck: trachea midline, no thyromegaly Respiratory: normal respiratory effort, lungs clear to auscultation Cardiovascular: RRR, no murmur, no edema Heart Sounds: normal S1 and normal S2 Gastrointestinal (Abdomen): normal bowel sounds, soft, nontender, no hepatosplenomegaly Skin: no rashes, warm and dry Neurologic: PERRL, EOMI, accommodation nl, no face palsy, no dysarthria CN's II-XI intact bilaterally and moves all extremities Psychiatric: A+Ox3, euthymic affect Orientation: oriented to person and oriented to place; + not oriented to time Results & Data Results & [facility] ([facility]) Vital Signs (Past 12 Hours) Vital Signs Temp Pulse Pulse Resp BP BP Pulse Ox 12/30/20 20:10 61 17 162/76 H 97 12/30/20 19:40 62 18 142/83 H 98 12/30/20 19:25 65 17 150/91 H 97 12/30/20 19:10 64 19 160/95 H 98 12/30/20 18:58 36.6 C 65 17 155/88 H 96 12/30/20 18:40 36.5 C 73 18 175/99 H 98 12/30/20 18:25 36.9 C 69 17 156/81 H 98 12/30/20 18:10 37.0 C 75 16 164/83 H 98 12/30/20 17:53 75 18 154/109 H 98 12/30/20 17:30 71 67 18 154/88 H 154/88 H 97 12/30/20 17:18 70 17 168/86 H 99 12/30/20 17:00 71 15 159/94 H 97 12/30/20 16:52 66 22 159/83 H 96 12/30/20 16:30 36.4 C L 62 20 157/83 H 98 Coding Level of Care Code 26482 Inpt Consult Level 3 Diagnoses BPH w/o urinary obs/LUTS N40.0 Peripheral neuropathy G62.9 Hyperlipidemia E78.5 Stroke I63.9
[2020-12-30] MEDS: PANTOprazole 40 MG TAB PO SCH (22:28)
[2020-12-30] MEDS: SIMVASTATIN 20 MG TAB PO SCH (22:28)
[2020-12-30] MEDS: OMEGA-3 (PURIFIED FISH OIL) 1 GM CAP PO SCH (22:28)
[2020-12-31 05:01] LABS: Basophils # (auto) 0.05 K/uL (0-0.2); Eosinophils # (auto) 0.22 K/uL (0-0.5); Eosinophils % (auto) 4.2 %; Hematocrit (blood only) 43.5 % (42-52); Hemoglobin 15.3 g/dL (14.0-18.0); Immature Granulocytes # (auto) 0.01 K/uL (0.00-0.02); Immature Granulocytes % (auto) 0.2 %; Lymphocytes % (auto) 36.5 %; Mean Corpuscular Hgb Conc 35.2 g/dL (32-36); Mean Platelet Volume 10.6 fL (7.4-10.4); Monocytes # (auto) 0.44 K/uL (0.11-0.59); Monocytes % (auto) 8.5 %; Neutrophils # (auto) 2.58 K/uL (1.4-6.5); Neutrophils % (auto) 49.6 %; Platelet Count 138 K/uL (130-400); RDW Standard Deviation 43.4 fL (36.4-46.3); Red Blood Count 4.78 M/uL (4.7-6.1)
[2020-12-31 05:31] LABS: BUN Creatinine Ratio 17.2 (10-20); Calcium 8.3 mg/dl (8.5-10.1); Creatinine Clr Calc Pharmacy 74.2 ml/min; Est GFR (African American) 95.6 ml/min; Est GFR (Non-African American) 82.5 ml/min; Magnesium 2.3 mg/dl (1.8-2.4); Potassium 3.6 mmol/L (3.5-5.1)
[2020-12-31 05:34] LABS: Phosphorus 3.6 mg/dl (2.5-4.9)
[2020-12-31] MEDS ORDERED: POTASSIUM CHLORIDE 20 MEQ/15 ML UDC PO STA (05:58)
[2020-12-31] MEDS ORDERED: POTASSIUM CHLORIDE CRTAB 20 MEQ TABCR PO STA (06:05)
[2020-12-31 07:15] LABS: Estimated Average Glucose 103 mg/dl; Hemoglobin A1C 5.2 % (4.5-5.6)
--- NOTE | 2020-12-31 07:24 | Hospitalist Progress Note ---
Date of Service December 31, 2020 Assessment & Plan (1) Transient global amnesia: Plan: Evans Lindo is a 80yo/ M with PMH significant for HLD, and BPH; who presented for concerns of a stroke with atypical speech pattern and ultimately received TPA in the ED. Transient global amnesia: -event seems completely resolved at this point in time -CT Head, CTA Head negative without acute findings -CTA Neck with demonstration of focal occlusion of right vertebral artery -MRI negative for acute stroke -received TPA at 1800 on 12/30 -continue to monitor in ICU through 24hr CT Head -Neurology consulted: likely transient global amnesia with no further need for intervention at this time, no intervention needed for vertebral artery occlusion -EEG pending to complete neurologic work-up, but seizure less likely to be source of episode -Echo pending Hyperlipidemia: -continue simvastatin 20mg BPH: -continue finasteride Diet: heart healthy CODE STATUS: Full code (2) Received intravenous tissue plasminogen activator (tPA) in emergency department: Admission and Anticipated Discharge Date Admission Date: December 30, 2020 Supervising Physician Co-Signing Physician Notes I personally examined the patient and verified all reid points of history and exam, discussed case, and agree with decision making with Dr Lewis. Feeling okay. No new complaints. Generally feeling back to baseline. Vitals noted, in general he is awake and alert pleasant no distress. HEENT normocephalic atraumatic mucous membranes moist. Breathing unlabored no accessory muscle use good effort. Speech is fluent. TGAstatus post thrombolytics given concern of stroke particularly given concern that it might've been expressive aphasia. Fortunately appears well now. Follow through post TPA protocol. Overall appearing stable Otherwise as above. Subjective Patient has had complete resolution of his symptoms yesterday with no new changes since admission. No acute concerns or complaints. Physical Exam Constitutional: WD/WN, vitals as above Eyes: PERRL, conjunctivae normal, anicteric sclerae Respiratory: normal respiratory effort, lungs clear to auscultation Auscultation: no crackles, no rales, no rhonchi and no wheezes Cardiovascular: Rate/Rhythm: regular rate and regular rhythm Heart Sounds: no gallop, no murmur and no cardiac rub Vessels: normal peripheral pulses; no JVD Extremities: no edema Gastrointestinal (Abdomen): Inspection/Auscultation: normal bowel sounds; abdomen not distended Percussion/Palpation: abdomen soft; abdomen nontender and no guarding Musculoskeletal: no cyanosis or clubbing, extremities motor strength 5/5 Skin: no rashes, warm and dry Neurologic: PERRL, EOMI, accommodation nl, no face palsy, no dysarthria CN's II-XI intact bilaterally and moves all extremities Psychiatric: Orientation: alert and oriented x 3 Results & Data Results & Data ([facility]) Vital Signs (Past 12 Hours) Vital Signs Temp Pulse Pulse Pulse Resp BP Pulse Ox 12/31/20 06:45 36.6 C 57 L 20 113/66 95 12/31/20 05:45 36.8 C 64 17 119/65 95 12/31/20 04:45 36.6 C 70 20 115/67 95 12/31/20 03:52 36.7 C 56 L 18 123/77 98 12/31/20 02:45 36.7 C 61 19 130/78 97 12/31/20 01:45 36.7 C 63 21 128/74 97 12/31/20 01:15 36.6 C 66 21 129/76 97 12/31/20 00:45 36.6 C 71 17 142/91 H 96 12/31/20 00:15 36.7 C 69 18 133/78 98 12/31/20 00:00 71 12/30/20 23:45 36.6 C 68 20 141/90 H 100 12/30/20 23:15 36.6 C 70 16 131/78 97 12/30/20 22:45 36.6 C 69 20 122/84 98 12/30/20 22:15 36.4 C L 60 22 169/80 H 99 12/30/20 21:45 36.6 C 61 20 147/88 H 99 12/30/20 21:15 36.6 C 61 13 156/89 H 98 12/30/20 20:45 36.7 C 65 19 159/90 H 100 12/30/20 20:10 61 17 162/76 H 97 12/30/20 19:40 62 18 142/83 H 98 12/30/20 19:25 65 17 150/91 H 97 Resident Activity Tracking Resident Involvement: Resident Care Provided Care Provided: Adult Hospital Medicine
--- NOTE | 2020-12-31 07:30 | Magnetic Resonance Report ---
MRI OF THE BRAIN WITHOUT IV CONTRAST CLINICAL HISTORY: Change in mental status. Stroke like symptoms. COMPARISON STUDY: CT of the brain dated 12/30/2020. TECHNIQUE: MRI of the brain was performed utilizing various T1 and T2-weighted sequences in the axial , sagittal, and coronal planes. IV contrast was not administered for this examination. FINDINGS: Brain parenchyma: There is age-related involutional change noting minimal microangiopathic disease. T here is no hemorrhage or mass effect. There is no restricted diffusion to suggest acute ischemia. Gra y-white matter differentiation is preserved. No extra-axial fluid collection is seen. The cerebellar tonsils are normal in configuration. Ventricles, sulci, and cisterns: Prominent secondary to involutional change. Pituitary and sella: Partially empty sella is incidentally noted. Intracranial vasculature: Normal flow voids are maintained at the skull base. Orbits: The bony orbits are grossly intact. Orbital contents are normal in appearance noting bilatera l ocular lens implants. Sinuses and mastoids: There is mild to moderate mucosal thickening within the maxillary sinuses. Mild mucosal thickening is seen within the left frontal sinus, the ethmoid sinuses, and the right sphenoi d sinus. The mastoid air cells are clear. Calvarium: Unremarkable. Cervical cord: Partially visualized cervical spinal cord is normal in morphology and signal intensity . IMPRESSION: No acute intracranial abnormality. ACT 112: Negative or not required by law. Electronically signed by: Sukumar Terry M.D. 12/31/2020 7:29 AM
[2020-12-31] MEDS: FINASTERIDE 5 MG TAB PO SCH (08:03)
[2020-12-31] MEDS: OMEGA-3 (PURIFIED FISH OIL) 1 GM CAP PO SCH ×3 (08:03→22:18)
--- NOTE | 2020-12-31 10:05 | Neurology Consultation ---
Date of Consultation December 31, 2020 Assessment & Plan (1) Transient global amnesia: (2) Occlusion of right vertebral artery: This patient's clinical presentation seems most consistent with transient global amnesia rather than stroke or TIA. However, he was found to have a focal occlusion of the distal aspect of the V4 segment of the right vertebral artery. Imaging negative for acute or subacute stroke. Normal intracranial circulation also noted. He did receive TPA in the emergency department after an assessment with a stroke specialist at [facility]. Daily low-dose aspirin can be started 24 hours after administration of TPA per protocol. Plavix 75 mg/day can be added to aspirin for 3 weeks as dual antiplatelet therapy. After which, however, patient may continue with daily low-dose aspirin rather than switching to Plavix. Patient should continue with simvastatin. Follow-up with results of echocardiogram. Vertebral artery occlusions are treated medically (statins and antiplatelet medication). Stenting and other surgical procedures are considered experimental and would be reserved for clinically unstable symptomatic patients. There is no role for more specific interventions for this patient's vertebral artery occlusion at this time. I see that an EEG has been ordered. This test is reasonable although, my clinical suspicion for epilepsy in this patient is quite low. Follow-up with results. The underlying pathophysiology of transient global amnesia is not really understood. Ischemic, epileptic, and migrainous phenomena have been postulated but are considered unlikely etiologies. Most cases tend to occur in the context of some type of environmental or emotional stressor. In this patient's case, the episode may have been triggered by preparing for and giving a lecture. Individuals with TGA are not considered at high risk for development of dementia. An episode of TGA is not felt to increase one's risk for stroke or seizures. Most individuals do not have recurrent episodes of TGA. 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 In fact, the patient has no recollection of giving this 90-minute lecture. He apparently answered many questions and had completed the lecture, but again, has no recollection of this event. A colleague had apparently noted that he seemed confused and disoriented. He was brought to the emergency department for further evaluation and management. Again, the patient has no specific recollection of his symptoms but is aware of a block of time yesterday for which she has no specific memory. He has a vague recollection of his evaluation in the emergency department. In looking at emergency department records, there was no indication of any focal motor deficits or changes in speech. A CT of the head including CT angiogram of the head and neck suggested a possible focal occlusion of the distal aspect of the V4 segment of the right vertebral artery and was otherwise unremarkable. The intracranial circulation was normal. Also, there was no evidence of hemorrhage or evolving infarct. The patient did have a telestroke consultation with Dr. Urbina at [facility]. TPA was recommended and administered given the possibility that his symptoms were related to an acute ischemic stroke. However, transient global a mnesia was also considered a possible diagnosis. The patient did have a follow- up brain MRI which was unremarkable, no evidence of acute or subacute stroke. No significant abnormalities. I did review the images as well as the radiologist's interpretation of these tests and agree. Currently, the patient is without specific symptoms. He remains amnestic for yesterday's lecture but otherwise has been doing well, no additional memory problems. No headache, speech disturbance, vision change, or focal weakness. Allergies Allergy/AdvReac Type Severity Reaction Status Date / Time No Known Allergies Allergy Verified 12/30/20 16:51 Home Medications Medication Instructions Recorded Confirmed Type omega 3-mtg-sfl-fish oil 1,000 mg 1 cap PO TID 12/06/18 12/30/20 History (120 mg-180 mg) capsule (Fish Oil) simvastatin 20 mg tablet 20 mg PO QPM #90 tab 04/07/20 12/30/20 Rx omeprazole 20 mg capsule,delayed 20 mg PO QPM 10/28/20 12/30/20 History release finasteride 5 mg tablet 5 mg PO DAILY #90 tab 12/16/20 12/30/20 Rx Patient History Medical History BPH (benign prostatic hyperplasia) GERD (gastroesophageal reflux disease) History of basal cell carcinoma 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; h/o chemo HLD (hyperlipidemia) Neuropathy Surgical History History of colonoscopy History of ear surgery Mohs micrgraphic History of excision of pilonidal cyst History of left cataract extraction History of shoulder surgery Mohs Micrographic History of tonsillectomy and adenoidectomy Hx of inguinal hernia surgery Family History Mother Cerebral atherosclerosis Family history of uterine cancer Glaucoma Stroke Father Diabetes Cerebral atherosclerosis Other No family history of adverse response to anesthesia Denies family history of Ovarian cancer Prostate cancer Myocardial infarction Breast cancer Lung cancer Colorectal cancer Social History Smoking Status: Never smoker Second Hand Exposure: No; Hx Alcohol Use: No Hx Substance Use: No Preferred Language: Nepali Communication Ability: Effective Visual Impairment: No Limitations Hearing Ability: Normal Displayer Required: No Beliefs That Will Affect Care: None marital status: Current Living Situation: Alone current occupational status: employed How many Children do You have: 2 Other Information That Helps Us Care for You: No Feels Safe at Home: Yes Safety Concerns: Feels Safe At This Time Childhood Exposure to Second-Hand Smoke: Yes (Father) caffeine: No Dental Care, Regularly: Yes Physical Activity Frequency: Daily Physical Activity Frequency Comment: walk mile a day Seatbelt Use: always Sunscreen Use: Yes (sometimes) Assistive Devices: Glasses Review of Systems Constitutional: no fever and no chills Eyes: no blind spots and no diplopia Ear, Nose, Mouth, Throat: no ear pain and no hearing loss Respiratory: no cough and no dyspnea Cardiovascular: no chest pain and no palpitations Gastrointestinal: no constipation and no diarrhea/loose stools Genitourinary: no urinary incontinence or no urinary urgency Musculoskeletal: no muscle weakness and no muscle atrophy Integumentary: no rash and no lesions Neurologic: as per Subjective / HPI Psychiatric: no behavioral changes, no depression, no abnormal sleep pattern and no anxiety Hematologic / Lymphatic: no easy bruising and no lymphadenopathy Exam (Neuro) Constitutional: well developed and well nourished; no acute distress Eyes: normal visual contreras by confrontation, PERRL, normal accommodation and EOM intact bilaterally; no fundoscopic abnormality, no nystagmus and no papilledema Cardiovascular: Vessels: normal carotid upstroke; no carotid bruit Neurologic: Oriented to:: Person, Place and Time Memory: Short Term Intact and Remote Intact Attention: Span Intact and Concentration Intact Language: Naming Objects and Repeating Phrases Speech Fluency: negative Dysarthria Speech Aphasia: negative Aphasia Fund of Knowledge: Current Events, Past History and Vocabulary Cranial Nerves: Normal II (Visual contreras full to confrontation, visual acuity normal), III, IV, (Pupils equal round reactive to light and accommodation, eye movements normal), V (Facial sensation intact), VII (There is no facial droop or weakness), VIII (Hearing intact), IX, X (Palate elevates to midline), XI (Shoulder shrug intact) and XII (Tongue protrudes to midline) Motor Strength: Normal Lower Extremities and Normal Upper Extremities; negative Pronator Drift Motor Tone: Normal Lower Extremities and Normal Upper Extremities Muscle Bulk/Involuntary Movements: No Involuntary Movements; negative Muscle Atrophy Sensation: Light Touch Intact, Pain/Temperature Intact, Vibration Intact and Proprioception Intact Coordination: Normal; negative Limited Balance, Dysdiadochokinesia, Finger-Nose Abnormal or Heel-Farris Abnormal Deep Tendon Reflexes: Rt Triceps: 2+, Lt Triceps: 2+, Rt Biceps: 2+, Lt Biceps: 2+, Rt Brachioradialis: 2+, Lt Brachioradialis: 2+, Rt Patellar: 2+, Lt Patellar: 2+, Rt Ankle: 2+ and Lt Ankle: 2+ Special Tests: negative Babinski Present Gait: Normal Station and Gait Results & Data ([facility]) Vital Signs (Past 12 Hours) Vital Signs Temp Pulse Pulse Pulse Resp BP Pulse Ox 12/31/20 08:45 36.6 C 72 13 118/64 96 12/31/20 07:45 36.5 C 60 14 112/70 96 12/31/20 06:45 36.6 C 57 L 20 113/66 95 12/31/20 05:45 36.8 C 64 17 119/65 95 12/31/20 04:45 36.6 C 70 20 115/67 95 12/31/20 03:52 36.7 C 56 L 18 123/77 98 12/31/20 02:45 36.7 C 61 19 130/78 97 12/31/20 01:45 36.7 C 63 21 128/74 97 12/31/20 01:15 36.6 C 66 21 129/76 97 08/18/21 00:45 36.6 C 71 17 142/91 H 96 12/31/20 00:15 36.7 C 69 18 133/78 98 12/31/20 00:00 71 12/30/20 23:45 36.6 C 68 20 141/90 H 100 12/30/20 23:15 36.6 C 70 16 131/78 97 12/30/20 22:45 36.6 C 69 20 122/84 98 12/30/20 22:15 36.4 C L 60 22 169/80 H 99 12/30/20 21:45 36.6 C 61 20 147/88 H 99 Laboratory Results WBC 5.20, hemoglobin 15.3, hematocrit 43.5, platelet count 138, sodium 142, potassium 3.6, BUN 15, creatinine 0.86, glucose 100, hemoglobin A1c 5.2, troponin less than 0.015, triglycerides 85, cholesterol 176, LDL 110, VLDL 17, HDL 49, TSH 2.[address] of the head, CT angiography of the head and neck, and brain MRI are as described in the history of present illness. Electrocardiogram reveals a normal sinus rhythm, 68 bpm. Coding Level of Care Code 06892 Initial Inpt Care Lvl 3 Diagnoses Transient global amnesia G45.4 Occlusion of right vertebral artery I65.01
--- NOTE | 2020-12-31 10:56 | Critical Care Progress Note ---
Date of Service December 31, 2020 Assessment & Plan (1) Received intravenous tissue plasminogen activator (tPA) in emergency department: (2) Stroke-like symptom: (3) Occlusion of right vertebral artery: (4) Transient global amnesia: Plan: 80-year-old male presenting to the hospital due to symptoms concerning for stroke. He was found to have a focal occlusion of the distal aspect of the V4 segment of the right vertebral artery. No intervention required at this time per neurology. Neurology feels that he likely had a transient global amnesia event. TPA was given. MRI without acute findings. Will start low-dose aspirin and Plavix if repeat CT head without evidence of hemorrhage. Continue simvastatin. Stable for downgrade to the floor once CT head is completed. Admission and Anticipated Discharge Date Admission Date: December 30, 2020 Subjective Patient seen and examined this morning. Denies any headache or neurological symptoms at present. Notes he had amnesia from yesterday. No acute events. Review of Systems Review of Systems: All systems reviewed & are unremarkable except as noted in HPI & below Physical Exam Constitutional: cooperative and comfortable Eyes: PERRL, conjunctivae normal, anicteric sclerae ENMT: external ear and nose normal, oropharynx normal Neck: trachea midline, no thyromegaly Respiratory: normal respiratory effort, lungs clear to auscultation Cardiovascular: RRR, no murmur, no edema Heart Sounds: normal S1 and normal S2 Gastrointestinal (Abdomen): normal bowel sounds, soft, nontender, no hepatosplenomegaly Skin: no rashes, warm and dry Neurologic: PERRL, EOMI, accommodation nl, no face palsy, no dysarthria CN's II-XI intact bilaterally and moves all extremities Psychiatric: A+Ox3, euthymic affect Orientation: oriented to person and oriented to place; + not oriented to time Results & Data Results & Data ([facility]) Vital Signs (Past 12 Hours) Vital Signs Temp Pulse Pulse Resp BP Pulse Ox 12/31/20 09:45 98.1 F 66 16 129/72 97 12/31/20 08:45 97.9 F 72 13 118/64 96 12/31/20 07:45 97.7 F 60 14 112/70 96 12/31/20 06:45 97.9 F 57 L 20 113/66 95 12/31/20 05:45 98.2 F 64 17 119/65 95 12/31/20 04:45 97.9 F 70 20 115/67 95 12/31/20 03:52 98.1 F 56 L 18 123/77 98 12/31/20 02:45 98.1 F 61 19 130/78 97 12/31/20 01:45 98.1 F 63 21 128/74 97 12/31/20 01:15 97.9 F 66 21 129/76 97 12/31/20 00:45 97.9 F 71 17 142/91 H 96 12/31/20 00:15 98.1 F 69 18 133/78 98 12/31/20 00:00 71 12/30/20 23:45 97.9 F 68 20 141/90 H 100 12/30/20 23:15 97.9 F 70 16 131/78 97 vital signs, labs and imaging personally reviewed Coding Level of Care Code 06245 Subseq Hosp Care Lvl 2 Diagnoses Received intravenous tissue plasminogen activator (tPA) in emergency department Z92.82 Stroke-like symptom R29.90 Occlusion of right vertebral artery I65.01 Transient global amnesia G45.4
--- NOTE | 2020-12-31 16:38 | Electroencephalogram ---
EEG Procedure Note Date of Service December 31, 2020 Start / End Times Start Time: 11:18 AM End Time: 11:38 AM Referring Physician ZAN Pearson History Confusion, transient global amnesia, rule out seizure activity Home Medication List Medication Instructions Recorded Confirmed Type omega 0-ihv-hno-fish oil 1,000 mg 1 cap PO TID 12/06/18 12/30/20 History (120 mg-180 mg) capsule (Fish Oil) simvastatin 20 mg tablet 20 mg PO QPM #90 tab 04/07/20 12/30/20 Rx omeprazole 20 mg capsule,delayed 20 mg PO QPM 10/28/20 12/30/20 History release finasteride 5 mg tablet 5 mg PO DAILY #90 tab 12/16/20 12/30/20 Rx Inpatient Medication List Finasteride (Finasteride 5 Mg Tab) 5 mg PO DAILY RADHA Stop: 01/30/21 08:59 Last Admin: 12/31/20 08:03 Dose: 5 mg Documented by: [id number] Fish Oil ([place]-3 (Purified Fish Oil) 1 Gm Cap) 1 gm PO TID RADHA Stop: 01/29/21 21:07 Last Admin: 12/31/20 14:47 Dose: 1 gm Documented by: [id number] Admin: 12/31/20 08:03 Dose: 1 gm Documented by: [id number] Admin: 12/30/20 22:28 Dose: 1 gm Documented by: [id number] Pantoprazole Sodium (Pantoprazole 40 Mg Tab) 40 mg PO QPM RADHA Stop: 01/29/21 21:07 Last Admin: 12/30/20 22:28 Dose: 40 mg Documented by: [id number] Simvastatin (Simvastatin 20 Mg Tab) 20 mg PO QPM RADHA Stop: 01/29/21 21:07 Last Admin: 12/30/20 22:28 Dose: 20 mg Documented by: [id number] Discontinued Medications Alteplase, Recombinant (Tpa For Stroke) 1 ea IV NOW STA; Protocol Stop: 12/30/20 17:53 Last Admin: 12/30/20 21:55 Dose: Not Given Documented by: [id number] Famotidine (Pepcid 20mg Iv Push) 20 mg in 5 mls @ 2.5 mls/min IV NOW STA Stop: 12/30/20 16:55 Last Admin: 12/30/20 17:23 Dose: 2.5 mls/min Documented by: [id number] Sodium Chloride (Nss 1000ml) 1,000 mls @ 999 mls/hr IV .Q1H1M ONE Stop: 12/30/20 17:54 Last Infusion: 12/30/20 20:45 Dose: 0 mls/hr Documented by: [id number] Admin: 12/30/20 17:23 Dose: 999 mls/hr Documented by: [id number] Alteplase, Recombinant 7.4 mg/ (Syringe) 7.4 mls @ 7.4 mls/min IV ONCE ONE Stop: 12/30/20 18:03 Last Admin: 12/30/20 17:53 Dose: 7.4 mls/min Documented by: [id number] Cosigned by: [id number] Alteplase, Recombinant 66 mg/ (EMPTY BAG) 66 mls @ 66 mls/hr IV ONCE ONE Stop: 12/30/20 18:04 Last Infusion: 12/30/20 19:02 Dose: 66 mls/hr Documented by: [id number] Cosigned by: [id number] Admin: 12/30/20 17:55 Dose: 66 mls/hr Documented by: [id number] Cosigned by: [id number] Ioversol (Optiray 320 125ml) 118 ml IV ONCE ONE Stop: 12/30/20 16:59 Last Admin: 12/30/20 16:58 Dose: 118 ml Documented by: [id number] Ondansetron HCl (Ondansetron Inj 2 Mg/Ml 2 Ml Vial) 4 mg IV NOW STA Stop: 12/30/20 16:55 Last Admin: 12/30/20 17:23 Dose: 4 mg Documented by: [id number] Potassium Chloride (Potassium Chloride 20 Meq/15 Ml Udc) 40 meq PO NOW STA Stop: 12/31/20 05:59 Last Admin: 12/31/20 06:08 Dose: Not Given Documented by: [id number] Potassium Chloride (Potassium Chloride Crtab 20 Meq Tabcr) 20 meq PO NOW STA Stop: 12/31/20 06:06 Last Admin: 12/31/20 06:29 Dose: 20 meq Documented by: [id number] Description This is a 21 electrode EEG with a single channel dedicated to limited EKG. The electrodes were placed in accordance with the International 10-20 system. There is a posterior dominant rhythm of 9 Hz which is symmetrically distributed and attenuates with eye opening. There is a normal anterior to posterior organization. Photic stimulation is unremarkable. Hyperventilation is not performed. There is a symmetric frontal beta rhythm. There is some admixed generalized theta slowing seen in the latter half of the study. There are a few vertex waves observed as well. There is no focal or lateralized slowing. No abnormal paroxysmal or epileptiform abnormalities appreciated. Interpretation Normal-appearing awake/sleepy EEG. A normal EEG does not completely exclude a diagnosis of epilepsy. Further clinical correlation may be needed. [facility] EEG Procedure Codes Indication for Procedure (1) Transient global amnesia: (2) Acute memory impairment: (3) Stroke-like symptom: Neurology Neurology: [id number] EEG include record awake & sleepy
--- NOTE | 2020-12-31 16:55 | Electrocardiogram Report ---
Test Reason : Blood Pressure : / mmHG Vent. Rate : 068 BPM Atrial Rate : 068 BPM P-R Int : 178 ms QRS Dur : 088 ms QT Int : 416 ms P-R-T Axes : 051 031 039 degrees QTc Int : 442 ms Normal sinus rhythm Normal ECG No previous ECGs available Confirmed by Chapo Lemons ([id number]) on 12/31/2020 4:54:49 PM Referred By: REFERRED SELF Confirmed By:Chapo Lemons
--- NOTE | 2020-12-31 16:55 | Billing Data ---
Date of Service December 31, 2020 Coding Level of Care Code 13333 Subseq Hosp Care Lvl 2
--- NOTE | 2020-12-31 18:05 | CT Scan Report ---
HEAD CT NONCONTRAST CT DOSE: 537.48 mGy.cm HISTORY: Altered mental status. post 24hr TPA administration TECHNIQUE: Multiaxial CT images of the head were performed without the use of intravenous contrast. A utomated exposure control was utilized for this study. A dose lowering technique was utilized adheri ng to the principles of ALARA. Comparison: Head CT 12/30/2020. Findings: Mild mucosal thickening within the visualized paranasal sinuses, unchanged. The mastoid air cells are clear. The calvarium and skull base are intact. The ventricles and sulci are within normal limits. There is no mass, hematoma, midline shift, or acute infarct. Impression: No acute intracranial abnormality. ACT 112: Negative or not required by law. Electronically signed by: Rodrigo Moreno M.D. 12/31/2020 6:04 PM
[2020-12-31] MEDS: PANTOprazole 40 MG TAB PO SCH (22:18)
[2020-12-31] MEDS: SIMVASTATIN 20 MG TAB PO SCH (22:19)
[2021-01-01 05:01] LABS: Basophils # (auto) 0.07 K/uL (0-0.2); Basophils % (auto) 1.3 %; Eosinophils # (auto) 0.45 K/uL (0-0.5); Eosinophils % (auto) 8.4 %; Hematocrit (blood only) 43.7 % (42-52); Hemoglobin 14.9 g/dL (14.0-18.0); Immature Granulocytes # (auto) 0.01 K/uL (0.00-0.02); Immature Granulocytes % (auto) 0.2 %; Lymphocytes % (auto) 39.2 %; Mean Corpuscular Hgb Conc 34.1 g/dL (32-36); Mean Platelet Volume 10.9 fL (7.4-10.4); Monocytes # (auto) 0.44 K/uL (0.11-0.59); Monocytes % (auto) 8.2 %; Neutrophils # (auto) 2.29 K/uL (1.4-6.5); Neutrophils % (auto) 42.7 %; Platelet Count 135 K/uL (130-400); RDW Coefficient of Variation 13.3 % (11.5-14.5); RDW Standard Deviation 45.9 fL (36.4-46.3); Red Blood Count 4.65 M/uL (4.7-6.1); White Blood Count 5.36 K/uL (4.8-10.8)
[2021-01-01 05:33] LABS: BUN Creatinine Ratio 23.3 (10-20); Calcium 8.2 mg/dl (8.5-10.1); Creatinine Clr Calc Pharmacy 65.8 ml/min; Est GFR (African American) 85.7 ml/min; Est GFR (Non-African American) 73.9 ml/min; Phosphorus 3.3 mg/dl (2.5-4.9)
[2021-01-01] MEDS: FINASTERIDE 5 MG TAB PO SCH (07:45)
[2021-01-01] MEDS: OMEGA-3 (PURIFIED FISH OIL) 1 GM CAP PO SCH (07:45)
[2021-01-01] MEDS ORDERED: STROKE PATIENT DISCHARGE STA (09:56)
--- NOTE | 2021-01-01 10:05 | Discharge Summary ---
Date of Service January 01, 2021 Admission HPI Per Admitting Provider 80-year-old male with PMH of HLD, BPH who presented as a stroke alert this afternoon after his colleagues noticed that he was not himself. Patient had been preparing for a presentation today for days. 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 Patient continues to be confused and he does not recall exactly when this began. He denies any headache, dizziness, syncope, changes in vision, facial droop, numbness or tingling, or loss of sensation. He denies any recent illness, fevers, sore throat, chest pain, shortness of breath, nausea or vomiting, or abdominal pain. Will monitor in ICU for 24 hours following TPA administration protocol. Principal Diagnosis transient global amnesia Discharge Exam Constitutional WD/WN, vitals as above Eyes PERRL, conjunctivae normal, anicteric sclerae Respiratory normal respiratory effort, lungs clear to auscultation Auscultation: no crackles, no rales, no rhonchi and no wheezes Cardiovascular Rate/Rhythm: regular rate and regular rhythm Heart Sounds: no gallop, no murmur and no cardiac rub Vessels: normal peripheral pulses; no JVD Extremities: no edema Gastrointestinal (Abdomen) Inspection/Auscultation: normal bowel sounds; abdomen not distended Percussion/Palpation: abdomen soft; abdomen nontender and no guarding Musculoskeletal no cyanosis or clubbing, extremities motor strength 5/5 Skin no rashes, warm and dry Neurologic PERRL, EOMI, accommodation nl, no face palsy, no dysarthria CN's II-XI intact bilaterally and moves all extremities Psychiatric Orientation: alert and oriented x 3 Discharge Data Allergies Allergy/AdvReac Type Severity Reaction Status Date / Time No Known Allergies Allergy Verified 12/30/20 16:51 Consultations 12/30/20 18:29 ED Decision to Admit Stat 12/30/20 19:08 Consult Neurology Routine 12/30/20 19:28 Consult Head Banquet Waitress Routine Ordered Studies 12/30/20 16:51 CT angio head w con Stat CT angio neck with con Stat CT head/brain wo con Stat 12/31/20 17:55 CT head/brain wo con Routine 12/31/20 22:38 MR brain wo con Routine Hospital Course (1) Transient global amnesia: Evans Lindo is a 80yo/ M with PMH significant for HLD, and BPH; who presented for concerns of a stroke with atypical speech pattern and ultimately received TPA in the ED. Transient global amnesia: -event seems completely resolved at this point in time -CT Head, CTA Head negative without acute findings -CTA Neck with demonstration of focal occlusion of right vertebral artery -MRI negative for acute stroke -received TPA on 12/30 given risk benefit of perceived Broca's aphasia -repeat CT head 24h after TPA negative with no acute findings -Neurology consulted: likely transient global amnesia with no further need for intervention at this time, no intervention needed for vertebral artery occlusion -EEG demonstrating a normal appearing awake/sleepy EEG, no epileptiform activity -echo done pending read on discharge Hyperlipidemia: -continue simvastatin 20mg BPH: -continue finasteride (2) Received intravenous tissue plasminogen activator (tPA) in emergency department: Total Time Total Time Spent Total Time Spent (In Minutes): <30 Discharge Plan Discharge Items Patient Disposition: Home - Self-Care Reason For Visit: TRANSIENT GLOBAL AMNESIA S/P TPA Discharge Diagnosis: transient global amnesia Activity: Per Instructions section Non-emergency contact: Primary Care Provider Call non-emergency contact if: you have any medication questions and your symptoms worsen Follow-up/Referrals: Chapo Case MD [Primary Care Provider] - (Dr. Case is unavailable.) Ami Silver PA-C [Physician Human Resources Compliance Manager] - 01/08/21 11:30 am (Dr. Case is unavailable. Please follow up with Ami Silver PA-C on 01/08/21 at 11:30 am. Please arrive to the office at 11:15 am for your appointment. If you are unable to keep this appointment, please call the office to reschedule at [phone].) Diet: Heart Healthy Addtl Attending Provider Instructions: You were seen and admitted for concerns for changes to your mental status with confusion. During this time, the concern was that you potentially had a stroke, fortunately following all of the imaging studies and tests that were conducted this was determined to not be the source of this evident. Given the extent of the testing that you had, it seem unlikely that this will re-occur in the future; as such would expect that you can continue to do well and be discharged from the hospital safely at this time. Pending Studies at Discharge: No Stand-Alone Forms: My [facility], Smoking Cessation Medications and DC Order Prescriptions: Continued simvastatin 20 mg tablet 20 mg PO QPM Qty: 90 RF: 3 finasteride 5 mg tablet 5 mg PO DAILY Qty: 90 RF: 3 omega 5-[id number]-fish oil [Fish Oil] 1,000 mg (120 mg-180 mg) capsule 1 cap PO TID RF: 0 omeprazole 20 mg capsule,delayed release(DR/EC) 20 mg PO QPM RF: 0 Discharge Orders: Discharge Order (Routine); Ordered 01/01/21 Ordered By: Ramakrishna Ash/Other Patient Handouts: Effects of a Stroke on the Brain ..., Understanding Reversible Dementias, Discharge Instructions for Stroke, Risk Factors for Stroke, Healthy Lifestyle to Prevent ..., Tests to Diagnose a Stroke Admission Data Admit Date/Time: 12/30/20 19:06 Attending Provider: Chadwick Mccall Admit Provider: Nhan Valadez Primary Care Provider: Chapo Case Other Providers: Nhan Valadez ; Jasson Acosta ; Dioni Spring Other Interventions: Discharge Summary Assessment (RN) Last Done: 01/01/21 10:08 Supervising Physician Co-Signing Physician Notes I personally examined the patient and verified all reid points of history and exam, discussed case, and agree with decision making with Dr Lewis. Feeling okay. feels up to going home. Vitals noted, in general he is awake and alert pleasant no distress. HEENT normocephalic atraumatic mucous membranes moist. Breathing unlabored no accessory muscle use good effort. Speech is fluent. TGAstatus post thrombolytics given concern of stroke particularly given concern that it might've been expressive aphasia. Fortunately appears well now. stable for home. Otherwise as above. Resident Activity Tracking Resident Involvement: Resident Care Provided Care Provided: Adult Hospital Medicine
--- NOTE | 2021-01-01 13:21 | Billing Data ---
Date of Service January 01, 2021 Coding Level of Care Code D/C DAY MANAGEMENT <30 MINS
== END 2021-01-01 11:35 | disposition home or self-care (01) | DRG 72 ==
LOC: ED 16:27 → 1E 19:06 → SUATTDRO 19:06 → 1E 20:30
DX: Z85.72 Personal history of non-Hodgkin lymphomas; K21.9 Gastro-esophageal reflux disease without esophagitis; I65.01 Occlusion and stenosis of right vertebral artery; N40.0 Benign prostatic hyperplasia without lower urinary tract symptoms; E78.5 Hyperlipidemia, unspecified; G62.9 Polyneuropathy, unspecified; G45.4 Transient global amnesia